=== PATIENT | female | born 1995 | race African-American/Black ===

== ENCOUNTER 2021-10-31 08:51 | Emergency (ER) | payer OTHER, SELFPAY ==
[2021-10-31 08:57] VITALS: BP 130/83; PULSE 94; RESP 19; TEMP 37.5; O2SAT 100
--- NOTE | 2021-10-31 09:05 | ED.URI ---
HPI - URI/Sore Throat General Chief Complaint: Upper Respiratory Infection Stated Complaint: Cough Time Seen by Provider: 10/31/21 08:52 History of Present Illness HPI Narrative: 26-year-old female in no distress presents the emergency room complaining of a cough that she has had for couple of days. States the cough is associated with sinus congestion, postnasal drip, frequently clearing her throat, and sneezing. Patient states that she has taken an unknown [id number] medication for cough which is not alleviated her symptoms. Denies a fever. Denies body aches, malaise. Patient states that she will occasionally get dizzy following a coughing spell. Related Data Allergies Allergy/AdvReac Type Severity Reaction Status Date / Time No Known Allergies Allergy Unverified 05/10/18 03:41 Review of Systems Review of Systems: CONSTITUTIONAL: Denies fever, chills, or sweats. EYES: Denies visual changes, redness, or discharge. ENT: Reports rhinorrhea, congestion, and sore throat. CARDIOVASCULAR: Denies chest pain, palpitations, or edema. RESPIRATORY: Reports cough. GASTROINTESTINAL: Denies abdominal pain, nausea, vomiting, or diarrhea. GENITOURINARY: Denies dysuria or hematuria. SKIN: Denies rash or itching. MUSCULOSKELETAL: Denies back pain, joint pain, or myalgia. NEUROLOGIC: Denies headache, numbness, dizziness, or weakness. PSYCHIATRIC: Denies anxiety or depression. Exam Narrative: GENERAL: Well-appearing, well-nourished, and in no acute distress. HEAD: Normocephalic, atraumatic. EYES: PERRLA and EOMI. ENT: Nares clear, no rhinorrhea or epistaxis. Mucous membranes moist. Oropharynx without tonsillar hypertrophy exudate or other lesions. Bilateral TMs pearly mayorga nonbulging NECK: Supple. No adenopathy or masses. CHEST: Clear to auscultation. No respiratory distress. No wheezes rales or rhonchi HEART: Regular rate and rhythm. No murmur heard. Normal peripheral pulses. ABDOMEN: Soft, nontender, nondistended, normal active bowel sounds. EXTREMITIES: Normal range of motion. No edema. SKIN: Warm, dry, no rash. NEURO: No focal deficits. Alert and oriented x3. PSYCH: Normal mood and affect. Course Vital Signs Vital signs: Vital Signs Temperature 37.5 C 10/31/21 08:57 Pulse Rate 94 10/31/21 08:57 Respiratory Rate 19 10/31/21 08:57 Blood Pressure 130/83 10/31/21 08:57 Pulse Oximetry 100 10/31/21 08:57 Temperature 37.5 C 10/31/21 08:57 Pulse Rate 94 10/31/21 08:57 Respiratory Rate 19 10/31/21 08:57 Blood Pressure 130/83 10/31/21 08:57 Pulse Oximetry 100 10/31/21 08:57 Discharge Plan Discharge Clinical Impression: Influenza Patient Disposition: Home, Self-Care Condition: Stable Instructions: Antibiotic Form Additional Instructions: Recommend alternating Tylenol ibuprofen for body aches and fever. May take Mucinex DM as needed for the cough. Push fluids. Follow-up/Referrals: UNKNOWN,DOCTOR [Primary Care Provider] - Time of Disposition: 09:53
--- NOTE | 2021-10-31 10:09 | PC.NURSE ---
This RN patient was no longer in room. Pt son also being seen not in room.
[2021-10-31 10:21] LABS: SARS-CoV-2 RNA PCR Negative
== END 2021-10-31 10:13 | disposition home or self-care (01) ==
PROVIDERS: Emergency Provider Nurse Practitioner Family
DX: J11.1 Influenza due to unidentified influenza virus with other respiratory manifestations (principal); Z20.822 Contact with and (suspected) exposure to COVID-19
CPT/HCPCS: 87804; 99283; C9803; U0003; U0005

== ENCOUNTER 2022-11-16 14:51 | Emergency (ER) | payer OTHER, SELFPAY ==
[2022-11-16 14:57] VITALS: BP 141/90; PULSE 95; RESP 16; TEMP 36.4; O2SAT 100
--- NOTE | 2022-11-16 16:02 | PC.NURSE ---
pt approached intake desk and states she is leaving. pt ambulatory out of ED.
== END 2022-11-16 16:10 | disposition left against medical advice (07) ==
LOC: ANHED 16:08
DX: L02.412 Cutaneous abscess of left axilla (principal)
CPT/HCPCS: 99199

== ENCOUNTER 2022-11-16 16:18 | Emergency (ER) | payer OTHER, SELFPAY ==
--- NOTE | 2022-11-16 16:27 | ED.SKABFB ---
HPI - Skin/Abscess/Foreign Bdy General Chief complaint: Skin/Abscess/Foreign Body Stated complaint: Bump Left Armpit Source: patient and RN notes reviewed History of Present Illness HPI narrative: 27 yo F presents to urgent care with an area of tenderness and swelling under her left armpit. Pt states she first noticed it a week ago. Pt states she has had one there before, about a year ago. Pt denies any fevers, chills, or drainage from the area. Pt has attempted placing a drying agent on it without relief. Related Data Allergies Allergy/AdvReac Type Severity Reaction Status Date / Time No Known Allergies Allergy Unverified 11/16/22 14:52 Review of Systems Review of Systems: CONSTITUTIONAL: Denies fever, chills, or sweats. EYES: Denies visual changes, redness, or discharge. ENT: Denies otalgia and sore throat CARDIOVASCULAR: Denies chest pain, palpitations, or edema. RESPIRATORY: Denies cough or dyspnea. GASTROINTESTINAL: Denies abdominal pain, nausea, vomiting, or diarrhea. GENITOURINARY: Denies dysuria or hematuria. SKIN: bump under left armpit MUSCULOSKELETAL: Denies back pain, joint pain, or myalgia. NEUROLOGIC: Denies headache, numbness, or weakness. Pertinent positives per HPI. PMFSH Comments At the time of my signature, I reviewed and agree with the nursing past medical, surgical, social, and family history. There is no relevant family history pertinent to the patient complaint. Exam Narrative: GENERAL: This is a well-nourished, well-developed patient, in no apparent distress. HEAD: normocephalic, atraumatic. EYES: Sclera clear/white. Vision is grossly intact. EARS: External ears normal, auditory canals clear and without drainage. Hearing grossly intact. NOSE: External nose normal with no obvious nasal discharge, nares without redness, no rhinorrhea. THROAT: Mucous membranes moist, posterior pharynx clear. NECK: Neck supple, non-tender without lymphadenopathy, masses or thyromegaly. CARDIOVASCULAR: Regular rate. RESPIRATORY: No respiratory distress GASTROINTESTINAL: Abdomen soft, non-tender, nondistended. Bowel sounds are active. No hepato-splenomegaly, or palpable masses. No guarding. SKIN: 2 cm abscess to left axilla. No drainage. Small amount of induration adjacent to swelling. NEURO: awake, alert, and oriented to person, place and time. There were no obvious focal neurologic abnormalities. EXTREMITIES: No clubbing, cyanosis, or edema. No joint tenderness, effusion, or edema noted. Course Course Level of Care: Express Care Visit Vital Signs Vital signs: Vital Signs Temperature 97.4 F L 11/16/22 16:28 Pulse Rate 98 11/16/22 16:28 Respiratory Rate 16 11/16/22 16:28 Blood Pressure 101/83 11/16/22 16:28 Pulse Oximetry 100 11/16/22 16:28 Oxygen Delivery Room Air 11/16/22 16:28 Temperature 97.4 F L 11/16/22 16:28 Pulse Rate 98 11/16/22 16:28 Respiratory Rate 16 11/16/22 16:28 Blood Pressure 101/83 11/16/22 16:28 Pulse Oximetry 100 11/16/22 16:28 Oxygen Delivery Room Air 11/16/22 16:28 Reviewed Procedures Abscess I/D Left axilla: Date of Incision: 11/16/22 Time of Incision: 17:00 Side (if applicable): left Local Anesthetic: none (LET gel) Technique: incised with #11 blade Amount of fluid expressed (mL): 10 Packing used?: none I&D Results: Pus (copious) Abcess I&D Additional Comments: Pt tolerated well. Culture obtained and sent to lab. Area was dressed with non-adherent dressing and ABx ointment. MDM - Skin/Abscess/Foreign Bdy MDM Narrative Medical decision making narrative: DO NOT pick at the area. This will only make the area worse and drive infection deeper. Shower and wash with soapy water. Keep area clean and dry. Take all the antibiotics as prescribed. Make sure to keep a dressing in place especially while it is draining Follow up with PCP in 7-10 days Return to Urgent ca
[2022-11-16 16:28] VITALS: BP 101/83; PULSE 98; RESP 16; TEMP 36.3; O2SAT 100
[2022-11-16] MEDS: LIDOCAINE, EPINEPHRINE, TETRACAINE VISCOUS SOLN 3 ML TOPICAL (16:37)
== END 2022-11-16 17:12 | disposition home or self-care (01) ==
PROVIDERS: Emergency Provider Nurse Practitioner Family
DX: L02.412 Cutaneous abscess of left axilla (principal)
CPT/HCPCS: 10060; 87070; 87077; 87205; 99213; G0463

== ENCOUNTER 2024-01-18 21:06 | Emergency (ER) | payer OTHER, SELFPAY ==
--- NOTE | ~2024-01-18 | XR_ITS ---
EXAMINATION: XR knee LT 3V DATE: 01/18/2024 21:44 INDICATION: Left knee injury and pain and swelling. TECHNIQUE: 3 views of left knee were obtained. COMPARISON: None. FINDINGS: There is an avulsion fracture of proximal tip of fibula with 3 mm distraction. Joint spaces are normal. No knee joint effusion. IMPRESSION: 1. Avulsion fracture of proximal tibia of fibula. Reviewed, dictated and finalized at location E.
[2024-01-18 21:12] VITALS: BP 151/96; PULSE 96; RESP 16; TEMP 36.9; O2SAT 100
--- NOTE | 2024-01-18 22:30 | ED.LOWEXIN ---
HPI - Extremity Injury (Lower) General Chief Complaint: Extremity Injury, Lower Stated Complaint: Left knee pain Time Seen by Provider: 01/18/24 21:56 History of Present Illness HPI Narrative: 28-year-old female presents with her mother at bedside for evaluation for left knee pain after injury that occurred prior to arrival. Patient states he was at a softball game when she slipped and injured her knee. She is unsure of the mechanism. She states she felt a popping sensation. Denies hitting her head, denies other injuries acquired. Related Data Allergies Allergy/AdvReac Type Severity Reaction Status Date / Time No Known Allergies Allergy Verified 01/18/24 21:16 Review of Systems Review of Systems: CONSTITUTIONAL: Denies fever, chills, or sweats. EYES: Denies visual changes, redness, or discharge. ENT: Denies rhinorrhea, congestion, sore throat, or otalgia. CARDIOVASCULAR: Denies chest pain, palpitations, or edema. RESPIRATORY: Denies cough or dyspnea. GASTROINTESTINAL: Denies abdominal pain, nausea, vomiting, or diarrhea. GENITOURINARY: Denies dysuria or hematuria. SKIN: Denies rash or itching. MUSCULOSKELETAL: See HPI NEUROLOGIC: Denies headache, numbness, or weakness. PSYCHIATRIC: Denies anxiety or depression. Exam Narrative: GENERAL: Well-appearing, well-nourished, and in no acute distress. HEAD: Normocephalic, atraumatic. NECK: Supple. CHEST: Clear to auscultation. No respiratory distress. HEART: Regular rate and rhythm. No murmur heard. Normal peripheral pulses. EXTREMITIES: LLE: Tenderness to the lateral aspect of the knee and the proximal fibula. Overlying edema to the knee. Full active and passive range of motion. Sensation intact. DP pulse 2 +. No tenderness remainder of lower extremity. SKIN: Warm, dry, no rash. NEURO: No focal deficits. Alert and oriented x3 Course Vital Signs Vital signs: Vital Signs Temperature 98.5 F 01/18/24 21:12 Pulse Rate 96 01/18/24 21:12 Respiratory Rate 16 01/18/24 21:12 Blood Pressure 151/96 H 01/18/24 21:12 Pulse Oximetry 100 01/18/24 21:12 Oxygen Delivery Room Air 01/18/24 21:12 Temperature 98.5 F 01/18/24 21:12 Pulse Rate 96 01/18/24 21:12 Respiratory Rate 16 01/18/24 21:12 Blood Pressure 151/96 H 01/18/24 21:12 Pulse Oximetry 100 01/18/24 21:12 Oxygen Delivery Room Air 01/18/24 21:12 MDM - Extremity Injury (Lower) MDM Narrative Medical decision making narrative: 28-year-old female presents to emergency department for left knee pain after an injury that occurred prior to arrival. Triage vital significant for hypertension of 151/96, otherwise unremarkable. Exam is significant for the above. She is neurovascularly intact. X-ray of the knee shows an avulsion fracture of the proximal tip of fibula with 3 mm distraction. Imaging discussed with the patient. She is pleasant any immobilizer provided crutches and [place] for pain control. Advised Tylenol ibuprofen and [place] breakthrough pain, advised rice. Encouraged close follow-up with orthopedist, referral provided. Strict ED return precautions discussed. She is agreeable to plan verbalized understanding. Discharged in stable condition. Discharge Plan Discharge Clinical Impression: Fibula fracture Qualifiers: Encounter type: initial encounter Fibula location: proximal Fracture type: closed Fracture morphology: other fracture Laterality: left Qualified Code(s): S82.832A - Other fracture of upper and lower end of left fibula, initial encounter for closed fracture Patient Disposition: Home, Self-Care Condition: Stable Instructions: Antibiotic Form, Leg Fracture (ED) Additional Instructions: Your evaluated in the emergency department for knee pain after injury. Your x-ray show that you broke the upper part of your fibula. Please wear the knee immobilizer, take Tylenol ibuprofen for pain and [place] for breakthrough pain, rest, ice, elevate and compressi
[2024-01-18] MEDS: HYDROcodone/acetaminophen (*CRX) 5-325 MG TABLET 1 TAB PO (22:35)
[2024-01-18 22:45] VITALS: BP 148/89; PULSE 88; RESP 16; O2SAT 99
== END 2024-01-18 23:04 | disposition home or self-care (01) ==
PROVIDERS: Emergency Provider Physician Assistant
DX: S82.832A Other fracture of upper and lower end of left fibula, initial encounter for closed fracture (principal); W01.0XXA Fall on same level from slipping, tripping and stumbling without subsequent striking against object, initial encounter; Y93.64 Activity, baseball
CPT/HCPCS: 73562; 99284; A9270

== ENCOUNTER 2024-01-23 12:08 | Outpatient (CLI) | payer OTHER, SELFPAY ==
--- NOTE | ~2024-01-23 | MR_ITS ---
MRI of the left knee Clinical history: Internal derangement Technique: Coronal proton density and proton density-weighted images, sagittal proton-density and T2 fat-sat images, and axial proton-density fat-saturated images were acquired. Findings: There is acute complete tear at the proximal ACL. Posterior cruciate ligament is intact. Th ere is focal increased signal of the proximal MCL, surrounding soft tissue edema. Lateral collateral ligament complex is intact. Popliteus tendon is intact. Medial and lateral menisci are intact, without evidence of tear. Focal grade 4 chondral fissure present along the medial patellar facet. Remainder articular cartilage is well preserved. There is focal contusion at the medial femoral condyle. There is an acute mildly displaced fracture the fibular head. Extensor mechanism is intact. Small joint effusion present. There is extensive edematous change of th e proximal muscle bellies of the extensor digitorum longus and peroneus longus muscles. There is subc utaneous soft tissue edema, nonspecific. Impression: Acute ACL tear at its proximal portion. Grade 1 to mild grade 2 MCL sprain. Acute, transverse, mildly displaced fracture the fibular head. The fracture fragment involves the ins ertion of the fibular collateral ligament and biceps femoris tendon. Mild contusion at the medial femoral condyle. Grade 4 chondral fissure at the medial patellar facet. Definite change of the proximal muscle bellies of the extensor digitorum longus and peroneus longus m uscles, compatible with muscle strain or contusion. Reviewed, dictated and finalized at [facility]. Impression: Acute ACL tear at its proximal portion. Grade 1 to mild grade 2 MCL sprain. Acute, transverse, mildly displaced fracture the fibular head. The fracture fra gment involves the insertion of the fibular collateral ligament and biceps femo ris tendon. Mild contusion at the medial femoral condyle. Grade 4 chondral fissure at the medial patellar facet. Definite change of the proximal muscle bellies of the extensor digitorum longus and peroneus longus muscles, compatible with muscle strain or contusion.
== END 2024-01-23 12:09 | disposition home or self-care (01) ==
PROVIDERS: Visit Provider Orthopaedic Surgery
DX: M23.92 Unspecified internal derangement of left knee (principal); S82.832A Other fracture of upper and lower end of left fibula, initial encounter for closed fracture; X58.XXXA Exposure to other specified factors, initial encounter
CPT/HCPCS: 73721